=== PATIENT | female | born 1965 | race Caucasian/White ===

== ENCOUNTER 2024-12-29 15:28 | Observation (INO) | payer MEDICARE, OTHER, SELFPAY ==
[2024-12-29] VITALS (8 sets, daily range): BP systolic 103–165; BP diastolic 66–87; BMI 17.7
--- NOTE | 2024-12-29 11:39 | ED.GENMED ---
History of Present Illness
General
Chief Complaint: Abdominal Symptoms
Source: patient
Time Seen by Provider: 12/29/24 11:20
History of Present Illness
History of Present Illness:
This patient is a 59-year-old female who states that she has had abdominal discomfort associate with nausea and vomiting since Sunday. She describes it as a 'sharp' discomfort that is without radiation, exacerbating, relieving factors. She denies
fever or chills, chest pain, dyspnea, back pain, vaginal discharge or bleeding, urinary symptoms, or other complaints. Patient was seen in urgent care and referred to the emergency department for further testing and care.
Past History
Past History
ED Past Medical History: Psychiatric and Other ('Mycobacterium lung infection')
Social History
Tobacco: Smoker
Alcohol: Occasional
Drug: None
Personal: (boyfriend)
Living: with family
Employment: Disabled
Family History
Family History: Other
Phy Exam
Physical Exam
Physical Exam:
GENERAL: Alert , in no apparent distress
EYE: pupils equal and reactive
NECK: Supple, no significant adenopathy.
ENT: o/p clr, mmm.
CARDIAC: Regular rate and rhythm .
LUNGS: Clear breath sounds bilaterally, no acute respiratory distress, no wheezes/rales/rhonchi
ABDOMEN: Soft, diffuse mild tenderness, no r/g, no cvat
NEUROLOGICAL: Alert and oriented, no focal neuro deficits
SKIN: Warm and dry, skin intact.
MUSCULOSKELETAL: No edema, well perfused.
PSYCH: Normal and appropriate interaction.
Course
Orders/Labs/Results
Orders:
Orders
12/29/24 11:51
CT Abd/pel Without Iv Or Oral Urgent
Comment:
Reason For Exam: abd pain
12/29/24 12:08
Complete Blood Count/No Diff Urgent
Comprehensive Metabolic Panel Urgent
Lipase Urgent
Urinalysis Reflex To Culture Urgent
Date Specimen was Collected: 12/29/24
Time Specimen was Collected: 12:01
Urine Microscopic Reflex Cult Urgent
Urine Culture Urgent
ADAM Source: U
Specimen Description:
Date Specimen was Collected: 12/29/24
Time Specimen was Collected: 12:01
12/29/24 14:36
Morphine Sulfate 2 mg IV NOW STA
12/29/24 14:50
0.9% Sodium Chloride 500 ml [Nss] 500 ml IV BOLUS
12/29/24 Dinner
Clear Liquid
At Your Request: Full Participation
Does patient need a safe tray?: No
12/29/24 15:17
Admit/Transfer Patient As Directed
Co-Sign Provider:
Level of Care: Observation services
Assign to:: Medical/Surgical
Physician / Group: janice
Diagnosis: gastroenteritis
Code Status As Directed
Resuscitation Status: Full Code
PRN Pain Medication Management As Directed
May give lesser potent ordered pain med per pt: Yes
preference::
Protocol:: Medication orders for pain may be administered in a
manner that supports deferring to patient preference
when the pt is:
- Requesting an ordered lesser potent pain medication.
Least to most potent pain medications are defined
as: acetaminophen < NSAID < tramadol < opioids
(morphine, oxycodone, hydromorphone).
- Requesting a lesser dose of the same medication IF
ORDERED.
- Requesting a less intrusive route of administration
if both routes are prescribed by the provider (PO <
IV).
12/29/24 16:40
Morphine Sulfate 1 mg IV Q4HPRN PRN
Ondansetron Injectable [Zofran] 4 mg IV Q6HPRN PRN
12/29/24 16:40
Activity As Directed
Activity Level: As Tolerated
Vital Signs As Directed
Frequency: Per unit guidelines
DX Deep Vein Thrombosis Video Routine
12/29/24 20:00
Heparin 5,000 units SC Q12
12/30/24 07:17
Complete Blood Count/With Diff IN AM
Comprehensive Metabolic Panel IN AM
Abnormal Lab Results
12/29/24
12:08
WBC 17.3 H 10^3/uL
(4.8-10.8)
MCV 77.4 L fL
(81.0-99.0)
MCH 25.7 L pg
(27.0-31.0)
RDW 15.9 H %
(11.5-14.5)
Plt Count 414 H 10^3/uL
(130-400)
Urine Bilirubin 1+ A
(Negative)
Leukocyte Esterase Rfl 1+ A
(Negative)
Urine Albumin (Reflex) 2+ A
(Neg - Trace)
12/29/24 12:08
12/29/24 12:08
Vital Signs
Initial and Last Documented VS:
Initial Vital Signs
Temp Pulse Resp BP Pulse Ox
98.9 F 66 16 127/79 98
12/29/24 10:38 12/29/24 10:38 12/29/24 10:38 12/29/24 10:38 12/29/24 10:38
Last Documented Vital Signs
Temp Pulse Resp BP Pulse Ox
97.9 F 75 14 132/71 95
12/30/24 07:30 12/30/24 07:48 12/30/24 07:48 12/30/24 07:30 12/30/24 07:48
*Critical Care Note
Total Time (30-74mins, 75-104mins- exclusive of procedures): Not Applicable
Update Note
Update Note:
Patient presents to the Emergency Department with __abdominal pain
Number and Complexity of Problems Addressed at the Encounter
� Chronic conditions affecting care:
� Acute Exacerbation and/or Progression of Chronic Illness:
� Differential Diagnosis includes: But not limited to gastroenteritis, appendicitis, cholecystitis, etc. etc.
Amount and/or Complexity of Data to be Reviewed and Analyzed
� I performed an independent evaluation of and my interpretation is:
EKG:
CT: Abnormal wall thickening of small bowel loops within the pelvis. Large number of abnormally enlarged mesenteric lymph nodes. These findings could have infectious or inflammatory etiology. Other etiologies including lymphoma
are possible. If symptoms persist, could be further evaluated with follow-up scan with oral and intravenous contrast.
2. Left lower lobe 4 mm nodule. As warranted, could be further evaluated with follow-up scan in 12 months as below.
3. Cholelithiasis.
4. Nonobstructive right nephrolithiasis.
Xrays:
Laboratory Studies: White blood cell count elevation
Other:
� Review of other/old records reveals:
� Clinical information was obtained by an independent historian:
� Prescriptions/Medications Considered but not given:
� Further testing considered but not performed:
Risk of Complications and/or Morbidity or Mortality of Patient Management
� Social determinants of health affecting care:
� Discussion with other providers (PCP, Hospitalists, Consultants, etc):
� Escalation of care including admission/observation vs risk of discharge considered: Case discussed with radiology Dr. Schmidt in follow-up to his CT reading that at that he does not necessarily suspect an acute process that
would warrant a repeat CAT scan now, but rather to follow patient and symptoms clinically. Case was discussed with patient's Sister Tracy, phone in great detail. She is aware of patient's abnormal CT including the lymph node
enlargement and need for follow-up concerning. Given patient's pain, leukocytosis, abnormal CT recommend observation overnight. Discussed with hospitalist. Patient is not actively vomiting. Pain well-controlled.
ED Attending Note
-
Portions of this chart may have been created with voice recognition software.� Occasional wrong word or��sound alike� substitutions may have occurred due to the inherent limitations of voice recognition software.
Discharge Plan
Departure
Patient Disposition: Admit
Date of Disposition: 12/29/24
Time of Disposition: 15:49
Admit to: Med/Surg
Presentation/result/management discussed w/ accepting MD/DO: Hospitalist
Condition: Fair
Discharge Problem:
Abdominal pain
Interventions
Interventions:
*Risk Screen - Suicide Last Done: 12/29/24 10:38
*General Assessment Last Done: 12/29/24 12:34
*Neglect/Abuse Screening Last Done: 12/29/24 10:38
*ED- Fall Risk Assessment Last Done: 12/29/24 12:34
*ED COVID-19 Vaccine History Last Done: 12/29/24 16:45
*Nursing Disposition Last Done: 12/29/24 16:29
DL-Gkkvmm-Wmbwcefxtw Assessment Last Done: 12/29/24 12:34
Discharge Date and Time
Discharge Date/Time: 12/29/24 16:33
[2024-12-29 12:23] LABS: Hematocrit 37.7 % (37.0-47.0); Hemoglobin 12.5 g/dL (12.0-16.0); Mean Corp Hgb Conc. 33.2 g/dL (33.0-37.0); Mean Corpuscular Hgb 25.7 pg (27.0-31.0); Mean Corpuscular Volume 77.4 fL (81.0-99.0); Mean Platelet Volume 9.9 fL (7.4-10.4); Platelet Count 414 10^3/uL (130-400); Red Blood Cell Count 4.87 10^6/uL (4.20-5.40); Red Cell Dist. Width 15.9 % (11.5-14.5); White Blood Cell Count 17.3 10^3/uL (4.8-10.8)
[2024-12-29 12:31] LABS: ALT (SGPT) 10 U/L (0-35); AST (SGOT) 19 U/L (14-36); Albumin 3.5 g/dl (3.5-5.0); Alkaline Phosphatase 76 U/L (38-126); Blood Urea Nitrogen 12 mg/dl (7-17); Calcium 9.2 mg/dl (8.4-10.2); Carbon Dioxide 26 mmol/L (22-30); Chloride 107 mmol/L (98-107); Glucose 82 mg/dl (70-99); Lipase 137 U/L (23-300); Potassium 4.3 mmol/L (3.5-5.1); Sodium 137 mmol/L (135-145); Total Bilirubin 0.5 mg/dl (0.2-1.3); Total Protein 6.4 g/dl (6.3-8.2); eGFR > 60.00
[2024-12-29 13:01] LABS: Urine Character Clear (Clear); Urine Color Yellow; Urine Glucose Negative (Negative); Urine Leukocyte 1+ (Negative); Urine Nitrite Negative (Negative); Urine Occult Blood Negative (Negative); Urine Urobilinogen 1+ (Neg - 1+)
[2024-12-29 13:10] LABS: Urine Albumin 2+ (Neg - Trace); Urine Bilirubin 1+ (Negative); Urine Ketone Negative (Negative)
[2024-12-29] MEDS: MORPHINE SULFATE 2 MG IV (14:39)
[2024-12-29 15:20] LABS: Urine Amorphous Seen
--- NOTE | 2024-12-29 15:20 | HPS.HSE ---
Family Physician
-
Family Physician: Tiki Solis
Chief Complaint
-
abdominal pain
History of Present Illness
59-year-old female past medical history of psychosis, mycobacterial lung infection, presenting with generalized abdominal discomfort with nausea and vomiting for past 2 days. No diarrhea. Pain is described as sharp without radiation, exacerbating
relieving factors. Denies fevers or chills, chest pain or shortness of breath or back pain or vaginal symptoms or urinary symptoms. Denies eating any outside food or restaurant food. Denies travel. No sick contacts.
Denies smoking. Drinks alcohol occasionally.
Medical History
Past Medical History
Past Medical History: Reports Other (psychosis, mycobacterial lung infection,)
Past Surgical History: Reports Tonsilectomy
Social History
Tobacco: Non-smoker
Alcohol: None
Drug: None
Family History
Family History: Not pertinent
Allergies / Home Medications
Allergies reflects when Allergies were last updated in [facility].
Home Medications with original date entered in [facility]
Allergy/Medication List:
Allergies
Allergy/AdvReac Type Severity Reaction Status Date / Time
bee venom protein (honey bee) Allergy Swelling Verified 12/29/24 10:39
diphenhydramine (From Allergy Unknown Verified 12/29/24 10:39
Benadryl)
Penicillins Allergy Hives Verified 12/29/24 10:39
Home Medications
lorazepam 0.5 mg tablet 0.5 mg PO HS #4 tabs 06/28/19
Aspirin : 81 mg PO DAILY 12/10/19
Latuda: 40 mg PO HS 12/10/19
Multivitamin 1 tab PO DAILY 12/10/19
Risperidone 2 mg PO HS 12/10/19
Stool Softener 2 tab PO BID 12/10/19
Topiramate 200 mg PO BID 12/10/19
Unisom 25 mg PO DAILY 12/10/19
Review of Systems
-
History Source: Patient
A 12 point ROS was completed and negative except as noted: Yes
Physical Exam
Vital Signs
Vital Signs
Temp Pulse Resp BP Pulse Ox
98.9 F 67 23 126/78 96
12/29/24 10:38 12/29/24 13:15 12/29/24 13:15 12/29/24 13:00 12/29/24 13:15
Physical Exam
General: Well Developed, Well Nourished and No Apparent Distress
HEENT: NormoCephalic, Moist mucous membranes and Atraumatic
Respiratory: Clear
Cardiac: S1/S2 and Regular Rhythm; No Murmur or Rub
GI: Soft, Non Distended, Normal Bowel Sounds and Tender (diffusely ); No Organomegaly
Rectal: Deferred by Provider
Musculoskeletal: No Clubbing, No Cyanosis and No Edema
Skin: No Rash
Neuro: Nonfocal/grossly intact
Laboratory Results
-
12/29/24 12:08
12/29/24 12:08
Laboratory Results
Total Bilirubin 0.5 mg/dl (0.2-1.3) 12/29/24 12:08
AST 19 U/L (14-36) 12/29/24 12:08
ALT 10 U/L (0-35) 12/29/24 12:08
Alkaline Phosphatase 76 U/L (38-126) 12/29/24 12:08
Lipase 137 U/L (23-300) 12/29/24 12:08
Data Reviewed
-
Lab Data: Labs Reviewed by me
Old Records: Reviewed
Impression/Plan
-
IMPRESSION:
PLAN:
# Acute gastroenteritis likely viral
-Leukocytosis
-CT abdomen pelvis shows abnormal wall thickening of small bowel loops within the pelvis, large number of abnormally enlarged mesenteric lymph nodes could be infectious versus inflammatory
-Urinalysis pending
- IV fluids given
- Clear liquid diet
- Advance as tolerated
History of psychosis
Mycobacterial lung infection
Full code
DVT prophylaxis�heparin
Clear liquid diet
[2024-12-29 15:21] LABS: Urine Red Blood Cell 0-2 /HPF (0-2)
[2024-12-29] MEDS: NSS 500 IV (15:30)
[2024-12-29] MEDS: MORPHINE SULFATE 1 MG IV (18:37)
[2024-12-29] MEDS: HEPARIN 5000 UNITS SC (19:39)
[2024-12-29] MEDS: LOW STRENGTH ASPIRIN 81 MG PO (19:45)
[2024-12-29] MEDS: TYLENOL 650 MG PO (19:45)
[2024-12-29] MEDS: LATUDA 40 MG PO (19:48)
[2024-12-29] MEDS: TESSALON PERLES 200 MG PO (21:13)
[2024-12-30] MEDS: MORPHINE SULFATE 1 MG IV ×2 (00:27→05:02)
[2024-12-30 07:30] VITALS: BP 132/71
[2024-12-30] MEDS: VENTOLIN NEBULES 2.5 MG INH (07:42)
[2024-12-30] MEDS: HEPARIN 5000 UNITS SC ×2 (08:10→19:56)
[2024-12-30] MEDS: TESSALON PERLES 200 MG PO ×3 (08:11→20:00)
[2024-12-30] MEDS: VITAMIN E 400 UNITS PO (08:12)
[2024-12-30] MEDS: THERAGRAN 1 TABLET PO (08:12)
[2024-12-30] MEDS: ZITHROMAX 250 MG PO (08:12)
[2024-12-30 08:19] LABS: ALT (SGPT) < 10 U/L (0-35); AST (SGOT) 18 U/L (14-36); Albumin 3.3 g/dl (3.5-5.0); Alkaline Phosphatase 61 U/L (38-126); Blood Urea Nitrogen 11 mg/dl (7-17); Calcium 9.1 mg/dl (8.4-10.2); Carbon Dioxide 25 mmol/L (22-30); Chloride 109 mmol/L (98-107); Estimated Creatinine Clearance 54 ml/min; Glucose 71 mg/dl (70-99); Potassium 4.7 mmol/L (3.5-5.1); Sodium 139 mmol/L (135-145); Total Bilirubin 0.5 mg/dl (0.2-1.3); eGFR > 60.00
[2024-12-30] MEDS: FLUSH (NSS) 1 FLUSH IV (08:23)
[2024-12-30 08:44] LABS: % Immature Granulocytes 0.3 % (0-0.5); % Lymphocytes 33.2 % (20.5-51.1); % Monocytes 6.1 % (1.7-9.3); % Neutrophils 43.4 % (42.2-75.2); Absolute Basophils 0.1 10^3/uL (0-0.2); Absolute Eosinophils 2.2 10^3/uL (0-0.7); Absolute Lymphocytes 4.5 10^3/uL (1.2-3.4); Absolute Monocytes 0.8 10^3/uL (0.1-0.6); Absolute Neutrophils 5.8 10^3/uL (1.4-6.5); Hematocrit 37.3 % (37.0-47.0); Hemoglobin 12.2 g/dL (12.0-16.0); Mean Corp Hgb Conc. 32.7 g/dL (33.0-37.0); Mean Corpuscular Hgb 25.3 pg (27.0-31.0); Mean Corpuscular Volume 77.2 fL (81.0-99.0); Mean Platelet Volume 10.4 fL (7.4-10.4); Nucleated Red Blood Cells % 0 %; Platelet Count 384 10^3/uL (130-400); Red Blood Cell Count 4.83 10^6/uL (4.20-5.40); Red Cell Dist. Width 15.8 % (11.5-14.5); White Blood Cell Count 13.4 10^3/uL (4.8-10.8)
--- NOTE | 2024-12-30 10:45 | CM ---
Patient seen bedside, initial assessment completed. Patient is a 59-year-old female past medical history of psychosis, mycobacterial lung infection, presenting with generalized abdominal discomfort with nausea and vomiting.
Patient resides alone in a 2nd flr apartment, 12 steps to get to apartment. Independent in all areas. Has neb machine that is used every morning and a chest machine that is used every day. Denies SNF hx, prev known to [facility] for PT/OT last year.
Address, points of contact and insurance verified
PCP: Tiki Solis
Pharmacy: [facility] pharmacy at [place]
Patient admitted obs. WILSON form verbally reviewed, copy provided, copy on chart
Patient discussed medical assistance for hospital stay and ambulance that was used to bring her to hospital. CM discussed w/ patient that she has traditional Medicare as primary and Medicaid as secondary insurances. RIMMA explained depending on her
specific insurance plan will tell her how much her hospital stay and ambulance would be covered as it is contingent on deductibles, out of pocket maximum, etc., however, since she has a secondary Medicaid insurance, they likely would pick that cost
up.
Plan: Home, no needs anticipated
--- NOTE | 2024-12-30 10:46 | W.PN.HOSP.TC ---
Today's Communication/Plan
-
Advance diet as tolerates
IV PPI.
Follow hemoglobin
Check iron level
Assessment / Plan
Assessment / Plan
Impression:
Presentation with 2 to 3 days of acute onset of gastrointestinal symptoms including nausea, vomiting, abdominal pain.
Acute gastroenteritis
Leukocytosis
Microcytosis with normal hemoglobin
Other conditions
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
Psychosis
Plan:
Acute gastroenteritis
Suspect acute infectious etiology.
Afebrile.
Benign abdominal examination.
Laboratory workup with normal electrolytes, elevated white count trending down.
CT scan without contrast:
1. Abnormal wall thickening of small bowel loops within the pelvis. Large number of abnormally enlarged mesenteric lymph nodes. These findings could have infectious or inflammatory etiology. Other etiologies including lymphoma are possible. If
symptoms persist, could be further evaluated with follow-up scan with oral and intravenous contrast.
2. Left lower lobe 4 mm nodule. As warranted, could be further evaluated with follow-up scan in 12 months as below.
3. Cholelithiasis.
4. Nonobstructive right nephrolithiasis.
Patient reports improved abdominal pain
Advance diet as tolerates and monitor closely
Start PPI
Microcytosis with normal hemoglobin
Check iron and B12 stores
Atypical Mycobacterium infection baseline continue triple antibiotic therapy including including azithromycin, omadacycline, clofazimine.
Psychosis
Continue Latuda
Anticipated Discharge: 24 - 48 hours
Subjective/Interval History
-
Date of Service: December 30, 2024
Objective Data
-
Labs:
Laboratory Results
12/30/24
07:17
WBC 13.4 H
Hgb 12.2
Hct 37.3
Plt Count 384
Sodium 139
Potassium 4.7
Chloride 109 H
Carbon Dioxide 25
BUN 11
Creatinine 0.8
Glucose 71
Calcium 9.1
Total Bilirubin 0.5
AST 18
ALT < 10
Alkaline Phosphatase 61
Vital Signs:
Vital Signs
Temp Pulse Resp BP Pulse Ox
97.9 F 75 14 132/71 95
12/30/24 07:30 12/30/24 07:48 12/30/24 07:48 12/30/24 07:30 12/30/24 07:48
I&O
12/29/24 12/30/24 12/31/24
06:59 06:59 06:59
Intake Total 960 / 960
Balance 960 / 960
Physical Exam
-
General: Well Developed and No Apparent Distress
HEENT: Normocephalic, Atraumatic and Moist Mucous Membranes
Respiratory: Clear to Auscultation
Cardiac: Regular Rhythm and S1/S2; Negative Murmur, Rub or Gallop
GI: Soft, Nontender, Nondistended and Normal Bowel Sounds; Negative Organomegaly
Rectal: Deferred by Provider
Musculoskeletal: No Clubbing, No Cyanosis and No Edema
Skin: Negative Rash
Neuro: Nonfocal/Grossly Intact
[2024-12-30 11:36] LABS: Iron 56 ug/dl (37-170)
[2024-12-30 11:38] VITALS: BMI 17.7
[2024-12-30 11:45] LABS: Percent Saturation 19 % (20-50); Total Iron Binding Capacity 291 ug/dl (265-497)
[2024-12-30] MEDS: NSS (PRESERVATIVE FREE) 10 ML IV (12:46)
[2024-12-30] MEDS: FLUSH (NSS) 2 FLUSH IV (12:47)
[2024-12-30] MEDS: PROTONIX IV 40 MG IV (12:47)
[2024-12-30 15:30] VITALS: BP 125/83
[2024-12-30] MEDS: LATUDA 40 MG PO (17:01)
[2024-12-30] MEDS: ASPIR LOW (ENTERIC COATED) 81 MG PO (17:01)
[2024-12-30] MEDS: TYLENOL 650 MG PO (17:01)
[2024-12-30 23:22] VITALS: BP 114/60
[2024-12-31] MEDS: TYLENOL 650 MG PO (02:50)
--- NOTE | 2024-12-31 05:01 | DOWNTIME ---
Addendum entered by Itzel Brown RN 12/31/24 14:24:
Correction: Downtime was 12/31/2024 from 0100 to 12/31/2024 at 0415
Original Note:
There was a [employer] Downtime on 12/30/2024 from 0100 to 12/31/2024 at 0415. Downtime documentation of patient's care, including medication administrations, has been reconciled in the electronic record per guidelines. Refer to the
patient's paper chart under the miscellaneous tab to see printed paper medication records and downtime forms.
[2024-12-31 07:40] VITALS: BP 137/81
[2024-12-31] MEDS: VENTOLIN NEBULES 2.5 MG INH (08:26)
[2024-12-31] MEDS: HEPARIN 5000 UNITS SC (08:44)
[2024-12-31] MEDS: PROTONIX IV 40 MG IV (08:45)
[2024-12-31] MEDS: VITAMIN E 400 UNITS PO (08:45)
[2024-12-31] MEDS: FLUSH (NSS) 2 FLUSH IV (08:45)
[2024-12-31] MEDS: TESSALON PERLES 200 MG PO ×2 (08:45→16:41)
[2024-12-31] MEDS: THERAGRAN 1 TABLET PO (08:45)
[2024-12-31] MEDS: ZITHROMAX 250 MG PO (08:45)
[2024-12-31] MEDS: NSS (PRESERVATIVE FREE) 10 ML IV (08:45)
[2024-12-31 15:19] VITALS: BP 133/82
--- NOTE | 2024-12-31 15:58 | CM ---
Per nurse patient for d/c today and will need assistance getting transport home
Spoke w/ patient who stated she doesn't have anyone to take her home, her mother doesn't drive and her family is away. Patient stated her sister manages her funds and that she doesn't have money to pay for a Lyft/[employer] herself.
CM permitted to request Lyft for patient to get home. Milvia/discharge nurse will request lyft for patient if d/c is placed after 4:30
IMM verbally reviewed, copy provided, copy on chart
Plan: Home, no needs
--- NOTE | 2024-12-31 16:14 | W.DS.TRANS ---
DC Summary - Prior Authorization Nurse
-
Discharge Instructions:
Discharge Diagnosis/Procedures Acute gastroenteritis
Diet Low Residue
Instructions:
Stand-Alone Forms:
Changes to Home Medications: No
Discharge Medications:
DC Medications w/original date entered in [facility]
aspirin 81 mg tablet,delayed release 81 mg PO QPM Blood Clot Prevention/Tx 12/10/19
lurasidone 40 mg tablet (Latuda) 40 mg PO QPM Mental Health/Anxiety 12/10/19
therapeutic multivitamin 1 tab PO DAILY Supplement 12/10/19
acetaminophen 325 mg tablet (Tylenol) 650 mg PO Q6HPRN PRN MILD PAIN 12/29/24
albuterol sulfate 2.5 mg/3 mL (0.083 %) solution for nebulization 2.5 mg inhalation R DAILY Lung/Breathing Issues 12/29/24
azithromycin 250 mg tablet 250 mg PO DAILY Infection 12/29/24
benzonatate 200 mg capsule 200 mg PO TID Cough 12/29/24
bismuth subsalicylate 262 mg/15 mL oral suspension (Pepto-Bismol) 262 mg PO DAILYPRN PRN GERD 12/29/24
clofazimine 50 mg capsule 50 mg PO BID Antibiotic 12/29/24
omadacycline 150 mg tablet 300 mg PO HS ANTIBIOTIC 12/29/24
vitamin E 268 mg (400 unit) capsule 268 mg PO DAILY Supplement 12/29/24
Home Medication Changes
Pending Results: No
[2024-12-31] MEDS: ASPIR LOW (ENTERIC COATED) 81 MG PO (16:42)
[2024-12-31] MEDS: LATUDA 40 MG PO (16:42)
== END 2024-12-31 16:58 | disposition home or self-care (01) ==
LOC: 4 EAST ACU 15:28
PROVIDERS: ADMITTING PHYSICIAN Hospitalist; ATTENDING PHYSICIAN Internal Medicine; EMERGENCY PHYSICIAN Emergency Medicine; FAMILY PHYSICIAN Family Medicine
DX: K52.9 Noninfective gastroenteritis and colitis, unspecified (principal); R10.9 Unspecified abdominal pain; F17.200 Nicotine dependence, unspecified, uncomplicated; R11.2 Nausea with vomiting, unspecified; R59.0 Localized enlarged lymph nodes; R91.1 Solitary pulmonary nodule; R71.8 Other abnormality of red blood cells; A31.0 Pulmonary mycobacterial infection; K80.20 Calculus of gallbladder without cholecystitis without obstruction; N20.0 Calculus of kidney; D72.829 Elevated white blood cell count, unspecified; Z60.2 Problems related to living alone; Z91.030 Bee allergy status; Z88.8 Allergy status to other drugs, medicaments and biological substances; Z88.0 Allergy status to penicillin; Z79.2 Long term (current) use of antibiotics
CPT/HCPCS: 74176; 80053; 81003; 81015; 82728; 83540; 83550; 83690; 85025; 85027; 87086; 94640; 96374; 99285; G0378

== ENCOUNTER → 2025-02-16 07:52 | Outpatient (REF) | payer MEDICARE, OTHER, SELFPAY | LOC: RAD 07:52 | PROVIDERS: ATTENDING PHYSICIAN Internal Medicine Gastroenterology; FAMILY PHYSICIAN Family Medicine | DX: R10.33 Periumbilical pain (principal); R93.3 Abnormal findings on diagnostic imaging of other parts of digestive tract | CPT/HCPCS: 74246 ==

== ENCOUNTER → 2025-05-26 08:05 | Outpatient (REF) | payer MEDICARE, OTHER, SELFPAY | LOC: RAD 08:05 | PROVIDERS: ATTENDING PHYSICIAN Family Medicine; REFERRING PHYSICIAN Internal Medicine Gastroenterology | DX: R10.84 Generalized abdominal pain (principal) | CPT/HCPCS: 74177; Q9967 ==